=== PATIENT | female | born 1970 | race Caucasian/White ===

== ENCOUNTER 2020-04-15 14:26 | Emergency (ER) | payer OTHER ==
[2020-04-15 17:11] LABS: BASOPHILS % (AUTO) 0.4 % (0.0-5.0); EOSINOPHILS % (AUTO) 0.9 % (0.0-8.0); HEMATOCRIT 47.1 % (36-48); LYMPHOCYTES % (AUTO) 23.6 % (21.0-51.0); MEAN CORPUSCULAR HEMOGLOBIN 29.9 pg (27.0-33.0); MEAN CORPUSCULAR HGB CONC 33.1 g/dL (32.0-36.0); MEAN CORPUSCULAR VOLUME 90.2 fL (79-99); MONOCYTES % (AUTO) 8.7 % (3.0-13.0); NEUTROPHILS % (AUTO) 65.9 % (40.0-77.0); PLATELET COUNT (AUTO) 261 K/uL (130-400); RED BLOOD CELL COUNT(AUTO) 5.22 MIL/uL (4.00-5.50); WHITE BLOOD COUNT (AUTO) 7.9 K/uL (4.8-10.8)
[2020-04-15 17:23] LABS: CREATININE 1.5 mg/dL (0.5-1.5); POTASSIUM 4.9 mmol/L (3.5-5.1)
[2020-04-15 17:27] LABS: ALBUMIN 3.5 g/dL (3.5-5.0); BILIRUBIN,TOTAL 0.8 mg/dL (0.2-1.0); TOTAL PROTEIN, SERUM 7.5 g/dL (6.0-8.3)
[2020-04-15] MEDS ORDERED: KETOROLAC TROMETHAMINE 30MG/ML ONE (17:57)
[2020-04-15] MEDS ORDERED: ONDANSETRON ODT 4 MG TAB ONE (17:57)
[2020-04-15] MEDS ORDERED: INSULIN HUMULIN R 100 UNIT/ML 3ML ONE (17:58)
[2020-04-15] MEDS ORDERED: MORPHINE SULFATE 4 MG/1ML SYG ONE (19:41)
== END 2020-04-15 19:52 | disposition home or self-care (01) ==
LOC: EDH 14:26
DX: R50.9 Fever, unspecified (principal); R51 Headache; I25.10 Atherosclerotic heart disease of native coronary artery without angina pectoris; E11.9 Type 2 diabetes mellitus without complications; I10 Essential (primary) hypertension; Z90.49 Acquired absence of other specified parts of digestive tract; Z98.890 Other specified postprocedural states; Z88.1 Allergy status to other antibiotic agents
CPT/HCPCS: 36415; 70450; 71045; 80053; 82948; 84484; 85025; 93005; 96372 ×3; 99285; J1815; J1885; J2270

== ENCOUNTER 2020-07-26 23:32 | Inpatient (IN) | payer OTHER ==
[~2020-07-26] VITALS: Ht 162.6 cm; Wt 101.2 kg
[2020-07-27] MEDS ORDERED: CEFTRIAXONE SODIUM 2 GM VIAL ONE (00:49)
[2020-07-27] MEDS ORDERED: AZITHROMYCIN 500MG+NS 250ML 250 ML IV ONE (00:50)
[2020-07-27] MEDS ORDERED: ACETAMINOPHEN EXTRA STRENGTH 500 MG TABLET ONE (00:50)
[2020-07-27 00:55] LABS: BASOPHILS % (AUTO) 0.2 % (0.0-5.0); CREATININE 1.8 mg/dL (0.5-1.5); HEMATOCRIT 44.8 % (36-48); LYMPHOCYTES % (AUTO) 3.1 % (21.0-51.0); MEAN CORPUSCULAR HEMOGLOBIN 29.5 pg (27.0-33.0); MEAN CORPUSCULAR HGB CONC 33.5 g/dL (32.0-36.0); MONOCYTES % (AUTO) 10.3 % (3.0-13.0); NEUTROPHILS % (AUTO) 84.3 % (40.0-77.0); PLATELET COUNT (AUTO) 110 K/uL (130-400); POTASSIUM 3.7 mmol/L (3.5-5.1); RED BLOOD CELL COUNT(AUTO) 5.09 MIL/uL (4.00-5.50); RED CELL DISTRIBUTION WIDTH 12.4 % (11.0-15.5); WHITE BLOOD COUNT (AUTO) 13.6 K/uL (4.8-10.8)
[2020-07-27 00:57] LABS: ALBUMIN 2.7 g/dL (3.5-5.0); BILIRUBIN,TOTAL 0.7 mg/dL (0.2-1.0); INR 1.04 (0.85-1.15); PARTIAL THROMBOPLASTIN TIME 33.4 SEC (26.3-35.5); PROTHROMBIN TIME 11.2 SEC (9.6-11.6); TOTAL PROTEIN, SERUM 6.7 g/dL (6.0-8.3)
[2020-07-27 01:29] LABS: B-TYPE NATRIURETIC PEPTIDE 169 pg/mL (0-100)
[2020-07-27] MEDS ORDERED: DEXAMETHASONE SOD PHOSPHATE 10MG/ML 1ML VIAL ONE (01:57)
[2020-07-27] MEDS ORDERED: INSULIN HUMULIN R 100 UNIT/ML 3ML ONE (01:58)
[2020-07-27] MEDS ORDERED: ONDANSETRON HCL 4 MG/2 ML VIAL IV PRN (02:45)
[2020-07-27] MEDS ORDERED: ACETAMINOPHEN 325 MG TAB PO PRN ×2 (02:45)
[2020-07-27] MEDS ORDERED: SODIUM CHLORIDE 0.9% 1000ML 1,000 ML IV SCH (02:45)
[2020-07-27] MEDS ORDERED: ALBUTEROL INHALER 90MCG/INH IH PRN (02:45)
[2020-07-27] MEDS ORDERED: CEFTRIAXONE SODIUM 1 GM IV SCH (02:45)
[2020-07-27] MEDS ORDERED: LACTULOSE 20 GM/30 ML UDCUP PO PRN (02:45)
[2020-07-27] MEDS ORDERED: ERGOCALCIFEROL (VITAMIN D2) 50,000 UNIT CAPSULE PO ONE (02:45)
[2020-07-27 03:12] LABS: HEMOGLOBIN A1C 10.6 % (4.0-6.0)
[2020-07-27 03:12] LABS: APPEARANCE,URINE Clear (CLEAR); BILIRUBIN,URINE Negative (NEGATIVE); COLOR,URINE Yellow (YELLOW); GLUCOSE, URINE (UA) >=1000 mg/dL (NEGATIVE); KETONES,URINE Trace mg/dL (NEGATIVE); LEUKOCYTE ESTERASE ,URINE Small (NEGATIVE); NITRATE,URINE Negative (NEGATIVE); OCCULT BLOOD,URINE Large (NEGATIVE); PROTEIN,URINE POS 1+ mg/dL (NEGATIVE); UROBILINOGEN,URINE 0.2 mg/dL (0.2-1.0)
[2020-07-27 03:48] LABS: BACTERIA,URINE Few /HPF (None Seen); WBC,URINE 26-50 /HPF (0-1); YEAST,URINE BUDDING Few /HPF (None Seen)
[2020-07-27] MEDS ORDERED: ERGOCALCIFEROL (VITAMIN D2) 50,000 UNIT CAPSULE ONE ×2 (05:35→09:37)
[2020-07-27] MEDS ORDERED: DILTIAZEM HCL 125 MG/25 ML VIAL IV ONE (06:20)
[2020-07-27] MEDS ORDERED: DILTIAZEM HCL 5 MG/ML 10 ML VIAL IV ONE ×4 (06:21→16:21)
[2020-07-27] MEDS: INSULIN HUMULIN R 100 UNIT/ML 3ML SQ SCH ×7 (07:30→21:00)
[2020-07-27 07:44] LABS: CREATININE 1.5 mg/dL (0.5-1.5); MAGNESIUM 2.1 mg/dL (1.80-2.40); POTASSIUM 3.7 mmol/L (3.5-5.1)
[2020-07-27] MEDS ORDERED: LACTATED RINGERS 1000ML 1,000 ML IV SCH (08:15)
[2020-07-27] MEDS ORDERED: RENAL DOSE IV SCH (08:15)
[2020-07-27] MEDS ORDERED: INSULIN GLARGINE 100 UNITS/ML 10 ML VIAL SQ SCH (08:15)
[2020-07-27] MEDS ORDERED: DEXTROSE 50%-WATER 50 ML DISP.SYRIN IV PRN (08:15)
[2020-07-27] MEDS ORDERED: GLUCAGON 1MG KIT 1 MG ML IM PRN (08:15)
[2020-07-27] MEDS ORDERED: ENOXAPARIN SODIUM 40 MG/0.4 ML SYRINGE SQ SCH (09:00)
[2020-07-27] MEDS: FAMOTIDINE 20MG TAB 20 MG TAB PO SCH ×2 (09:00→21:00)
[2020-07-27] MEDS: ASCORBIC ACID 500 MG TAB PO SCH (09:00)
[2020-07-27] MEDS: ZINC SULFATE 220 CAPSULE PO SCH (09:00)
[2020-07-27] MEDS ORDERED: DOXYCYCLINE HYCLATE 100 MG TABLET PO SCH (09:00)
[2020-07-27] MEDS ORDERED: DEXAMETHASONE 4 MG TAB PO SCH (09:00)
[2020-07-27] MEDS ORDERED: LACTATED RINGERS 1000ML 1,000 ML IV ONE (09:32)
[2020-07-27] MEDS ORDERED: ASCORBIC ACID 500 MG TAB ONE (09:36)
[2020-07-27] MEDS ORDERED: ZINC SULFATE 220 CAPSULE ONE (09:37)
[2020-07-27] MEDS ORDERED: FAMOTIDINE 20MG TAB 20 MG TAB ONE ×2 (09:37→21:24)
[2020-07-27] MEDS ORDERED: ENOXAPARIN SODIUM 40 MG/0.4 ML SYRINGE SQ ONE (09:38)
[2020-07-27] MEDS ORDERED: ZOSYN 3.375GM+NS 50ML 50 ML IV ONE ×2 (09:38→18:12)
[2020-07-27] MEDS ORDERED: DOXYCYCLINE HYCLATE 100 MG TABLET PO ONE ×2 (09:47→21:24)
[2020-07-27] MEDS ORDERED: DILTIAZEM 125MG+100 ML NS 125 ML IV SCH (11:00)
[2020-07-27] MEDS ORDERED: DILTIAZEM HCL 5 MG/ML 5 ML VIAL IVP SCH (11:00)
--- NOTE | 2020-07-27 11:05 | NUR ---
DERMATOMYIASIS Addendum: 07/27/20 at 1130 by ERICKA CALLEJAS RN RN Amended: Links added.
[2020-07-27] MEDS ORDERED: DILTIAZEM HCL 5 MG/ML 10 ML VIAL IV SCH ×2 (11:15→16:00)
[2020-07-27] MEDS ORDERED: AMIODARONE HCL 360 MG in DEXTROSE 5%-WATER 200 ML IV SCH (11:15)
[2020-07-27] MEDS: METOPROLOL TARTRATE 25 MG TAB PO SCH ×3 (11:15→21:00)
[2020-07-27] MEDS ORDERED: AMIODARONE HCL 150 MG in DEXTROSE 5%-WATER 100 ML IV SCH (11:15)
--- NOTE | 2020-07-27 11:29 | NUR ---
UNSTATES SMOKES WEED 1 JOINT DAILY Addendum: 07/27/20 at 1130 by ERICKA CALLEJAS RN RN Amended: Links added.
[2020-07-27] MEDS ORDERED: AMIODARONE HCL 900 MG in DEXTROSE 5%-WATER 500 ML IV SCH (11:30)
[2020-07-27] MEDS ORDERED: METOPROLOL TARTRATE 25 MG TAB ONE ×2 (11:46→21:36)
[2020-07-27] MEDS ORDERED: LORA-192 (11:50)
[2020-07-27] MEDS ORDERED: PROM50TA3 PO (11:50)
[2020-07-27] MEDS ORDERED: CLON-353 PO (11:50)
[2020-07-27] MEDS ORDERED: QUET25TA74 PO (11:50)
[2020-07-27] MEDS ORDERED: LOSA100T58 PO (11:50)
[2020-07-27] MEDS ORDERED: FURO80TA3 PO (11:50)
[2020-07-27] MEDS ORDERED: CLON0.3T36 PO (11:50)
[2020-07-27] MEDS ORDERED: GABA-529 PO (11:50)
[2020-07-27] MEDS ORDERED: OXYC30TA2 PO (11:52)
[2020-07-27] MEDS: ZOSYN 3.375GM+NS 50ML 50 ML IV SCH ×2 (13:00→21:00)
--- NOTE | 2020-07-27 16:29 | NUR ---
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 HAD COVID IN MARCH, WAS OFF, IS NOW BACK WORKING AGAIN, AND IS SICK, STATESE CONTRACT WAS ALMOST UP PER SPOUSE, HE KNOWS SHE IS ACTIVE AND EMPLOYED , NO DME, BUT HE IS NOT SURE IS SHE USES AN INHALER OR NEBULIZER SINCE HER COVID DX. 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 SPOUE WORRIES AND UPSET. HE LVES IN [place] AND DOES NOT KNOW HOW SHE WILL BE ABLE TO GET HOME
[2020-07-27] MEDS ORDERED: ACETAMINOPHEN 325 MG TAB ONE (21:36)
[2020-07-28] MEDS ORDERED: ZOSYN 3.375GM+NS 50ML 50 ML IV ONE ×3 (02:40→19:19)
[2020-07-28] MEDS ORDERED: INSULIN HUMULIN R 100 UNIT/ML 3ML ONE (04:47)
[2020-07-28] MEDS ORDERED: LACTATED RINGERS 1000ML 1,000 ML IV ONE (04:48)
[2020-07-28] MEDS: ZOSYN 3.375GM+NS 50ML 50 ML IV SCH ×3 (05:00→21:00)
[2020-07-28 05:07] LABS: BASOPHILS % (AUTO) 0.2 % (0.0-5.0); EOSINOPHILS % (AUTO) 0.4 % (0.0-8.0); HEMATOCRIT 41.5 % (36-48); LYMPHOCYTES % (AUTO) 5.6 % (21.0-51.0); MEAN CORPUSCULAR HEMOGLOBIN 29.3 pg (27.0-33.0); MEAN CORPUSCULAR VOLUME 88.7 fL (79-99); MONOCYTES % (AUTO) 6.7 % (3.0-13.0); NEUTROPHILS % (AUTO) 85.8 % (40.0-77.0); PLATELET COUNT (AUTO) 121 K/uL (130-400); RED BLOOD CELL COUNT(AUTO) 4.68 MIL/uL (4.00-5.50); RED CELL DISTRIBUTION WIDTH 12.8 % (11.0-15.5); WHITE BLOOD COUNT (AUTO) 18.1 K/uL (4.8-10.8)
[2020-07-28 05:19] LABS: CREATININE 1.3 mg/dL (0.5-1.5)
[2020-07-28] MEDS ORDERED: METOPROLOL TARTRATE 25 MG TAB ONE ×2 (05:21→15:04)
[2020-07-28 06:07] LABS: CRP QUANTITATIVE 290.1 mg/L (0.00-9.0)
[2020-07-28] MEDS ORDERED: POTASSIUM CHLORIDE 20MEQ/100ML 200 ML IV ONE (06:14)
[2020-07-28] MEDS: INSULIN HUMULIN R 100 UNIT/ML 3ML SQ SCH ×8 (07:30→21:00)
[2020-07-28 07:41] LABS: ABG BASE EXCESS -0.6 mmol/L (-2.0-3.0); ABG HCO3 23.9 mmol/L (21.0-28.0); ABG OXYGEN SATURATION 93.9 % (95.0-99.0); ABG PCO2 39 mmHg (32-45)
[2020-07-28] MEDS ORDERED: POTASSIUM CHLORIDE 20MEQ/100ML 100 ML IV PRN ×2 (08:00)
[2020-07-28] MEDS ORDERED: POTASSIUM CHLORIDE 10% ELIXIR 20 MEQ/15 ML UDCUP PO PRN (08:00)
[2020-07-28] MEDS: METOPROLOL TARTRATE 25 MG TAB PO SCH ×3 (09:00→21:00)
[2020-07-28] MEDS: ASCORBIC ACID 500 MG TAB PO SCH (09:00)
[2020-07-28] MEDS: FAMOTIDINE 20MG TAB 20 MG TAB PO SCH ×2 (09:00→21:00)
[2020-07-28] MEDS: ZINC SULFATE 220 CAPSULE PO SCH (09:00)
[2020-07-28] MEDS ORDERED: AMIODARONE HCL 200 MG TABLET PO SCH (10:15)
[2020-07-28] MEDS ORDERED: ASCORBIC ACID 500 MG TAB ONE (10:28)
[2020-07-28] MEDS ORDERED: ZINC SULFATE 220 CAPSULE ONE (10:29)
[2020-07-28] MEDS ORDERED: FAMOTIDINE 20MG TAB 20 MG TAB ONE (10:29)
[2020-07-28] MEDS ORDERED: AMIODARONE HCL 200 MG TABLET PO ONE (10:29)
[2020-07-28] MEDS ORDERED: ENOXAPARIN SODIUM 40 MG/0.4 ML SYRINGE SQ ONE (10:29)
[2020-07-28] MEDS ORDERED: VANCOMYCIN PROTOCOL PER PHARMACY IV SCH (12:15)
[2020-07-28] MEDS ORDERED: COMPOUND IV REFRIGERATED 1 EACH IVSOLN MISC PRN (12:30)
[2020-07-28] MEDS: VANCOMYCIN 1.25 GM in SODIUM CHLORIDE 0.9% 250 ML IV SCH (13:00)
[2020-07-28] MEDS ORDERED: ATORVASTATIN CALCIUM 40 MG TABLET ONE (19:21)
[2020-07-28] MEDS: ATORVASTATIN CALCIUM 40 MG TABLET PO SCH (21:00)
[2020-07-28] MEDS: APIXABAN 5 MG TABLET PO SCH (21:00)
[2020-07-29] MEDS ORDERED: ZOSYN 3.375GM+NS 50ML 50 ML IV ONE (02:49)
[2020-07-29 03:19] LABS: BASOPHILS % (AUTO) 0.2 % (0.0-5.0); EOSINOPHILS % (AUTO) 0.1 % (0.0-8.0); HEMATOCRIT 40.1 % (36-48); LYMPHOCYTES % (AUTO) 9.5 % (21.0-51.0); MEAN CORPUSCULAR HEMOGLOBIN 29.1 pg (27.0-33.0); MEAN CORPUSCULAR HGB CONC 33.4 g/dL (32.0-36.0); MEAN CORPUSCULAR VOLUME 87.2 fL (79-99); MONOCYTES % (AUTO) 7.8 % (3.0-13.0); NEUTROPHILS % (AUTO) 81.8 % (40.0-77.0); PLATELET COUNT (AUTO) 150 K/uL (130-400); WHITE BLOOD COUNT (AUTO) 14.6 K/uL (4.8-10.8)
[2020-07-29 03:30] LABS: ALBUMIN 2.3 g/dL (3.5-5.0); BILIRUBIN,TOTAL 0.6 mg/dL (0.2-1.0); CREATININE 1.3 mg/dL (0.5-1.5); CRP QUANTITATIVE 157.1 mg/L (0.00-9.0); POTASSIUM 3.1 mmol/L (3.5-5.1); TOTAL PROTEIN, SERUM 6.9 g/dL (6.0-8.3)
[2020-07-29] MEDS ORDERED: HYDRALAZINE HCL 20 MG/ML VIAL IV PRN (04:45)
[2020-07-29] MEDS ORDERED: HYDRALAZINE HCL 20 MG/ML VIAL ONE ×2 (04:56→11:27)
[2020-07-29] MEDS: ZOSYN 3.375GM+NS 50ML 50 ML IV SCH ×3 (05:00→21:00)
[2020-07-29] MEDS: INSULIN GLARGINE 100 UNITS/ML 10 ML VIAL SQ SCH ×2 (07:30→21:00)
[2020-07-29] MEDS: INSULIN HUMULIN R 100 UNIT/ML 3ML SQ SCH ×11 (07:30→21:00)
[2020-07-29] MEDS ORDERED: POTASSIUM CHLORIDE 20 MEQ ERTAB PO ONE (08:39)
[2020-07-29] MEDS: ASCORBIC ACID 500 MG TAB PO SCH (09:00)
[2020-07-29] MEDS: APIXABAN 5 MG TABLET PO SCH ×2 (09:00→21:00)
[2020-07-29] MEDS: ZINC SULFATE 220 CAPSULE PO SCH (09:00)
[2020-07-29] MEDS: METOPROLOL TARTRATE 25 MG TAB PO SCH ×3 (09:00→21:00)
[2020-07-29] MEDS: FAMOTIDINE 20MG TAB 20 MG TAB PO SCH ×2 (09:00→21:00)
[2020-07-29] MEDS ORDERED: METOPROLOL TARTRATE 25 MG TAB ONE (09:39)
[2020-07-29] MEDS ORDERED: FAMOTIDINE 20MG TAB 20 MG TAB ONE (09:39)
[2020-07-29] MEDS ORDERED: ZINC SULFATE 220 CAPSULE ONE (09:39)
[2020-07-29] MEDS ORDERED: ASCORBIC ACID 500 MG TAB ONE (09:39)
[2020-07-29] MEDS: VANCOMYCIN 1.25 GM in SODIUM CHLORIDE 0.9% 250 ML IV SCH (13:00)
[2020-07-29] MEDS ORDERED: INSULIN HUMULIN R 100 UNIT/ML 3ML ONE (19:22)
[2020-07-29] MEDS ORDERED: INSULIN GLARGINE 100 UNITS/ML 10 ML VIAL SQ SCH (21:00)
[2020-07-29] MEDS: ATORVASTATIN CALCIUM 40 MG TABLET PO SCH (21:00)
--- NOTE | 2020-07-29 22:30 | NUR ---
patient alert times one. she refuses to wear her cpap at night and her oxygen 2 liters. she looks confused and doesn't know where she is at. we reassure her and tell her where she is at and why she is here.
[2020-07-30 00:23] VITALS: BP 164/98
[2020-07-30] MEDS: ZOSYN 3.375GM+NS 50ML 50 ML IV SCH ×3 (03:54→20:33)
[2020-07-30 04:00] VITALS: BP 162/97
[2020-07-30 05:44] LABS: BASOPHILS % (AUTO) 0.1 % (0.0-5.0); EOSINOPHILS % (AUTO) 0.4 % (0.0-8.0); HEMATOCRIT 38.3 % (36-48); LYMPHOCYTES % (AUTO) 14.4 % (21.0-51.0); MEAN CORPUSCULAR HEMOGLOBIN 29.4 pg (27.0-33.0); MEAN CORPUSCULAR HGB CONC 33.4 g/dL (32.0-36.0); MEAN CORPUSCULAR VOLUME 87.8 fL (79-99); MONOCYTES % (AUTO) 12.2 % (3.0-13.0); NEUTROPHILS % (AUTO) 72.1 % (40.0-77.0); PLATELET COUNT (AUTO) 129 K/uL (130-400); RED BLOOD CELL COUNT(AUTO) 4.36 MIL/uL (4.00-5.50); WHITE BLOOD COUNT (AUTO) 9.8 K/uL (4.8-10.8)
[2020-07-30 06:08] LABS: ALBUMIN 2.1 g/dL (3.5-5.0); BILIRUBIN,TOTAL 0.5 mg/dL (0.2-1.0); CREATININE 0.9 mg/dL (0.5-1.5); CRP QUANTITATIVE 104.8 mg/L (0.00-9.0); POTASSIUM 3.5 mmol/L (3.5-5.1); THYROID STIMULATING HORMONE 1.81 uIU/mL (0.36-3.74)
[2020-07-30] MEDS: INSULIN HUMULIN R 100 UNIT/ML 3ML SQ SCH ×11 (06:18→20:24)
[2020-07-30] MEDS: POTASSIUM CHLORIDE 20 MEQ ERTAB PO PRN ×2 (06:33→08:59)
[2020-07-30 08:54] VITALS: BP 197/102
[2020-07-30] MEDS: METOPROLOL TARTRATE 25 MG TAB PO SCH ×3 (08:56→20:33)
[2020-07-30] MEDS: ASCORBIC ACID 500 MG TAB PO SCH (08:56)
[2020-07-30] MEDS: FAMOTIDINE 20MG TAB 20 MG TAB PO SCH ×2 (08:56→20:33)
[2020-07-30] MEDS: APIXABAN 5 MG TABLET PO SCH ×2 (08:56→20:32)
[2020-07-30] MEDS: ZINC SULFATE 220 CAPSULE PO SCH (08:59)
[2020-07-30] MEDS: VANCOMYCIN 1.25 GM in SODIUM CHLORIDE 0.9% 250 ML IV SCH (13:00)
[2020-07-30 13:05] VITALS: BP 170/98
[2020-07-30] MEDS: INSULIN GLARGINE 100 UNITS/ML 10 ML VIAL SQ SCH ×2 (13:34→20:38)
--- NOTE | 2020-07-30 13:37 | NUR ---
INSTRUCTED BY DR MISHRA TO GIVE STAT 20UNITS LANTUS.
[2020-07-30 16:40] VITALS: BP 143/80
[2020-07-30 19:58] VITALS: BP 132/69
[2020-07-30] MEDS: ATORVASTATIN CALCIUM 40 MG TABLET PO SCH (20:33)
--- NOTE | 2020-07-30 21:34 | NUR ---
SPOKE WITH DR. MISHRA. PT GIVEN 2 DOSES OF LANTUS, ONE DURING THE DAY AND ONCE BEFORE BED. EXPLAINED PT MISSED A DOSE LAST NIGHT IN ER AND INSTRUCTED DAYSHIFT NURSE TO GIVE DOSE. LANTUS ORDERED HS, SO PT RECEIVED [address] MISHRA INSTRUCTED TO MONITOR PT AND CHECK GLUCOSE AT 0000. IF GLUCOSE IS <150 GIVE SNACK AND MONITOR CLOSELY.
[2020-07-31] VITALS: BP 143/97
[2020-07-31 03:58] VITALS: BP 175/101
[2020-07-31] MEDS: ZOSYN 3.375GM+NS 50ML 50 ML IV SCH (04:26)
[2020-07-31] MEDS: INSULIN HUMULIN R 100 UNIT/ML 3ML SQ SCH ×11 (05:21→21:00)
[2020-07-31 05:52] LABS: BASOPHILS % (AUTO) 0.2 % (0.0-5.0); HEMATOCRIT 38.5 % (36-48); LYMPHOCYTES % (AUTO) 19.5 % (21.0-51.0); MEAN CORPUSCULAR HEMOGLOBIN 29.1 pg (27.0-33.0); MEAN CORPUSCULAR HGB CONC 32.7 g/dL (32.0-36.0); MEAN CORPUSCULAR VOLUME 88.9 fL (79-99); MONOCYTES % (AUTO) 10.5 % (3.0-13.0); NEUTROPHILS % (AUTO) 67.1 % (40.0-77.0); PLATELET COUNT (AUTO) 169 K/uL (130-400); RED BLOOD CELL COUNT(AUTO) 4.33 MIL/uL (4.00-5.50); WHITE BLOOD COUNT (AUTO) 9.9 K/uL (4.8-10.8)
[2020-07-31 06:27] LABS: BILIRUBIN,TOTAL 0.5 mg/dL (0.2-1.0); CREATININE 0.8 mg/dL (0.5-1.5); POTASSIUM 3.4 mmol/L (3.5-5.1); TOTAL PROTEIN, SERUM 5.9 g/dL (6.0-8.3)
[2020-07-31] MEDS: ASCORBIC ACID 500 MG TAB PO SCH (08:41)
[2020-07-31] MEDS: APIXABAN 5 MG TABLET PO SCH ×2 (08:42→21:01)
[2020-07-31] MEDS: FAMOTIDINE 20MG TAB 20 MG TAB PO SCH ×2 (08:42→21:01)
[2020-07-31] MEDS: METOPROLOL TARTRATE 25 MG TAB PO SCH ×3 (08:42→21:01)
[2020-07-31] MEDS: ZINC SULFATE 220 CAPSULE PO SCH (08:42)
[2020-07-31] MEDS ORDERED: MAGNESIUM 2GM PREMIX 50ML 50 ML IV ONE (08:48)
[2020-07-31] MEDS: POTASSIUM CHLORIDE 20 MEQ ERTAB PO PRN ×2 (08:52→13:27)
[2020-07-31 09:00] VITALS: BP 153/91
[2020-07-31] MEDS: FLUCONAZOLE 100 MG TAB PO SCH (11:16)
[2020-07-31 12:18] VITALS: BP 150/86
[2020-07-31 18:27] VITALS: BP 145/48
[2020-07-31 20:00] VITALS: BP 170/97
[2020-07-31] MEDS: INSULIN GLARGINE 100 UNITS/ML 10 ML VIAL SQ SCH (20:59)
[2020-07-31] MEDS: ATORVASTATIN CALCIUM 40 MG TABLET PO SCH (21:01)
[2020-08-01] VITALS: BP 150/84
[2020-08-01 04:00] VITALS: BP 178/104
[2020-08-01] MEDS ORDERED: CLONIDINE HCL 0.1 MG TABLET PO STA (04:40)
[2020-08-01] MEDS ORDERED: CLONIDINE HCL 0.1 MG TABLET ONE (04:44)
[2020-08-01 05:56] LABS: BASOPHILS % (AUTO) 0.2 % (0.0-5.0); EOSINOPHILS % (AUTO) 1.4 % (0.0-8.0); HEMATOCRIT 37.4 % (36-48); LYMPHOCYTES % (AUTO) 20.8 % (21.0-51.0); MEAN CORPUSCULAR HEMOGLOBIN 29.4 pg (27.0-33.0); MEAN CORPUSCULAR HGB CONC 32.6 g/dL (32.0-36.0); MEAN CORPUSCULAR VOLUME 90.1 fL (79-99); MONOCYTES % (AUTO) 11.7 % (3.0-13.0); NEUTROPHILS % (AUTO) 63.3 % (40.0-77.0); PLATELET COUNT (AUTO) 232 K/uL (130-400); RED BLOOD CELL COUNT(AUTO) 4.15 MIL/uL (4.00-5.50); WHITE BLOOD COUNT (AUTO) 9.2 K/uL (4.8-10.8)
[2020-08-01 06:36] LABS: CARBON DIOXIDE 27 mmol/L (21-32); CHLORIDE 106 mmol/L (101-111); CREATINE KINASE, TOTAL 17 U/L (21-232); CREATININE 0.8 mg/dL (0.5-1.5); GLOMERULAR FILTR. RATE CALC 80 mL/min (>60); GLUCOSE,RANDOM 157 mg/dL (70-105); MYOGLOBIN 34 ng/mL (10-92); POTASSIUM 3.8 mmol/L (3.5-5.1); SODIUM SERUM 139 mmol/L (136-145); TROPONIN I < 0.04 ng/mL (0.00-0.06); UREA NITROGEN, BLOOD 12 mg/dL (7-18)
[2020-08-01] MEDS: INSULIN HUMULIN R 100 UNIT/ML 3ML SQ SCH ×11 (07:23→21:00)
[2020-08-01] MEDS: APIXABAN 5 MG TABLET PO SCH ×2 (07:58→20:25)
[2020-08-01] MEDS: FAMOTIDINE 20MG TAB 20 MG TAB PO SCH ×2 (07:58→20:25)
[2020-08-01] MEDS: ZINC SULFATE 220 CAPSULE PO SCH (07:58)
[2020-08-01] MEDS: ASCORBIC ACID 500 MG TAB PO SCH (07:58)
[2020-08-01 08:00] VITALS: BP 151/82
[2020-08-01] MEDS: METOPROLOL TARTRATE 25 MG TAB PO SCH ×3 (08:01→20:26)
[2020-08-01] MEDS: FLUCONAZOLE 100 MG TAB PO SCH (08:01)
[2020-08-01] MEDS: LOSARTAN 50 MG TABLET PO SCH ×2 (10:06→20:25)
[2020-08-01 12:00] VITALS: BP 150/84
[2020-08-01 16:00] VITALS: BP 153/85
[2020-08-01 20:00] VITALS: BP 165/106
[2020-08-01] MEDS: ATORVASTATIN CALCIUM 40 MG TABLET PO SCH (20:25)
[2020-08-01] MEDS: INSULIN GLARGINE 100 UNITS/ML 10 ML VIAL SQ SCH (21:10)
[2020-08-02] VITALS: BP 160/95
[2020-08-02 04:00] VITALS: BP 152/92
[2020-08-02] MEDS: INSULIN HUMULIN R 100 UNIT/ML 3ML SQ SCH ×3 (04:47→06:37)
[2020-08-02 06:12] LABS: CREATININE 0.9 mg/dL (0.5-1.5); POTASSIUM 3.9 mmol/L (3.5-5.1)
[2020-08-02 08:00] VITALS: BP 181/107
[2020-08-02] MEDS: ASCORBIC ACID 500 MG TAB PO SCH (08:16)
[2020-08-02] MEDS: METOPROLOL TARTRATE 25 MG TAB PO SCH (08:16)
[2020-08-02] MEDS: APIXABAN 5 MG TABLET PO SCH (08:16)
[2020-08-02] MEDS: ZINC SULFATE 220 CAPSULE PO SCH (08:16)
[2020-08-02] MEDS: LOSARTAN 50 MG TABLET PO SCH (08:16)
[2020-08-02] MEDS: FAMOTIDINE 20MG TAB 20 MG TAB PO SCH (08:16)
[2020-08-02 08:24] VITALS: BP 165/88
[2020-08-02] MEDS ORDERED: FLUC200T8 PO (09:43)
[2020-08-02] MEDS ORDERED: INSLAN SQ (09:43)
[2020-08-02] MEDS ORDERED: METF-446 PO (09:43)
[2020-08-02] MEDS ORDERED: METO25TA6 PO (09:43)
[2020-08-02] MEDS ORDERED: ATOR40TA69 PO (09:43)
[2020-08-02] MEDS ORDERED: APIX5TAB PO (09:43)
[2020-08-02] MEDS ORDERED: PIOG30TA10 PO (09:43)
[2020-08-02] MEDS: FLUCONAZOLE 100 MG TAB PO SCH (10:13)
--- NOTE | 2020-08-02 10:42 | NUR ---
DISCHARGE DISCHARGE INSTRUCTIONS GIVEN TO PATIENT, VERBALIZED UNDERSTANDING. PATIENT IS TRAVELLING BACK TO [facility], [place]. PRESCRIPTIONS GIVEN TO PATIENT. IV'S DISCONTINUED.
[2020-08-02] MEDS ORDERED: CLONIDINE HCL 0.3 MG TABLET PO SCH (21:00)
== END 2020-08-02 10:45 | disposition home or self-care (01) | DRG 871 ==
LOC: EDH 23:32 → EDHIP 07-27 02:41 → 3DH 07-29 21:45
PROVIDERS: ADMIT Internal Medicine; ATTEND Internal Medicine
PROC: 5A09357 Assistance with Respiratory Ventilation, Less than 24 Consecutive Hours, Continuous Positive Airway Pressure (ICD-10-PCS; principal; 2020-07-29)
PROC: 5A09357 Assistance with Respiratory Ventilation, Less than 24 Consecutive Hours, Continuous Positive Airway Pressure (ICD-10-PCS; 2020-07-31)
PROC: 5A09357 Assistance with Respiratory Ventilation, Less than 24 Consecutive Hours, Continuous Positive Airway Pressure (ICD-10-PCS; 2020-08-01)
PROC: 5A09357 Assistance with Respiratory Ventilation, Less than 24 Consecutive Hours, Continuous Positive Airway Pressure (ICD-10-PCS; 2020-08-02)
DX: A41.50 Gram-negative sepsis, unspecified (principal); E11.00 Type 2 diabetes mellitus with hyperosmolarity without nonketotic hyperglycemic-hyperosmolar coma (NKHHC); N17.9 Acute kidney failure, unspecified; N39.0 Urinary tract infection, site not specified; D84.9 Immunodeficiency, unspecified; E87.1 Hypo-osmolality and hyponatremia; I48.0 Paroxysmal atrial fibrillation; B35.9 Dermatophytosis, unspecified; E04.1 Nontoxic single thyroid nodule; E66.9 Obesity, unspecified; E87.6 Hypokalemia; F41.9 Anxiety disorder, unspecified; G47.33 Obstructive sleep apnea (adult) (pediatric); I11.9 Hypertensive heart disease without heart failure; Z20.828 Contact with and (suspected) exposure to other viral communicable diseases; I25.10 Atherosclerotic heart disease of native coronary artery without angina pectoris; Z68.38 Body mass index [BMI] 38.0-38.9, adult; Z74.01 Bed confinement status; Z79.84 Long term (current) use of oral hypoglycemic drugs; Z79.899 Other long term (current) drug therapy; Z95.5 Presence of coronary angioplasty implant and graft; Z88.1 Allergy status to other antibiotic agents; Z90.49 Acquired absence of other specified parts of digestive tract
CPT/HCPCS: 36415; 36600; 71045; 71250; 76770; 78582; 80048; 80053; 80061; 81001; 82010; 82550; 82803; 82948; 83036; 83605; 83735; 83874; 83880; 84132; 84145; 84439; 84443; 84484; 84702; 85025; 85378; 85610; 85730; 86140; 86900; 86901; 87040; 87077; 87088; 87186; 87426; 87804; 93005; 93306; 93356; 94660; 99291; A9540; A9558; G0378; J0282; J0360; J0456; J0696; J1100; J1650; J1815; J2405; J2543; J3370; J3475; J3480; J3490; J7050; J7060; J7120; U0003